=== PATIENT | female | born 1960 | race Caucasian/White ===

== ENCOUNTER → 2016-12-22 | Outpatient (CLI) | payer BC | LOC: WI 12:47 | PROVIDERS: ATTEND Physician Assistant | DX: Z12.31 Encounter for screening mammogram for malignant neoplasm of breast (principal) | CPT/HCPCS: 77067; G0202 ==

== ENCOUNTER 2017-06-05 17:48 | Emergency (ER) | payer BC ==
[2017-06-05] MEDS ORDERED: KETOROLAC TROMETHAMINE INJ/PF 30 MG/1 ML SDV IV ONE (18:04)
[2017-06-05] MEDS ORDERED: ONDANSETRON HCL INJ/PF 4 MG/2 ML SDV IV ONE (18:04)
[2017-06-05] MEDS ORDERED: NORMAL SALINE 1000 ML 1,000 ML IV ONE ×2 (18:04→22:12)
--- NOTE | 2017-06-05 18:12 | ER Document Report ---
ED Medical Screen (RME) - General Chief Complaint: Flank Pain Stated Complaint: BACK PAIN Time Seen by Provider: 06/05/17 18:00 Mode of Arrival: Wheelchair Information source: Patient TRAVEL OUTSIDE OF THE [place] IN LAST 30 DAYS: No - HPI Patient complains to provider of: flank pain Onset: Other - pt was recently diagnosed with kidney infection and started on abx. Started with L flank pain yesterday with exacerbation today. - Related Data Allergies/Adverse Reactions: sulfamethoxazole [From ] Allergy (Verified 06/05/17 17:52) trimethoprim [From Mayra] Allergy (Verified 06/05/17 17:52) narcotics Adverse Reaction (Uncoded 06/05/17 17:52) VOMITING Past Medical History - Past Medical History Cardiac Medical History: Denies: Hx Heart Attack, Hx Hypertension Pulmonary Medical History: Denies: Hx Asthma Neurological Medical History: Denies: Hx Cerebrovascular Accident, Hx Seizures Endocrine Medical History: Reports: Hx Hypothyroidism Renal/ Medical History: Denies: Hx Peritoneal Dialysis GI Medical History: Denies: Hx Hepatitis, Hx Hiatal Hernia, Hx Ulcer Infectious Medical History: Denies: Hx Hepatitis Past Surgical History: Reports: Hx Cholecystectomy, Hx Gynecologic Surgery - Tubal ligation, Hx Hysterectomy. Denies: Hx Mastectomy, Hx Open Heart Surgery, Hx Pacemaker - Immunizations Hx Diphtheria, Pertussis, Tetanus Vaccination: No Physical Exam - Vital signs Vitals: Temp Pulse Resp BP Pulse Ox 98.4 F 119 H 20 145/91 H 97 06/05/17 17:52 06/05/17 17:52 06/05/17 17:52 06/05/17 17:52 06/05/17 17:52 Course - Vital Signs Vital signs: Temp Pulse Resp BP Pulse Ox 98.4 F 119 H 20 145/91 H 97 06/05/17 17:52 06/05/17 17:52 06/05/17 17:52 06/05/17 17:52 06/05/17 17:52
[2017-06-05 18:57] LABS: ABSOLUTE EOSINOPHILS # (AUTO) 0.2 10^3/uL (0.0-0.6); ABSOLUTE LYMPHOCYTES (AUTO) 1.3 10^3/uL (0.5-4.7); ABSOLUTE NEUT (AUTO) 7.1 10^3/uL (1.7-8.2); BASOPHILS % (AUTO) 0.5 % (0-2); EOSINOPHILS % (AUTO) 2.1 % (0-6); HEMATOCRIT 47.5 % (36.0-47.0); HEMOGLOBIN 15.9 g/dL (12.0-15.5); HGB HCT DIFFERENCE 0.2; LYMPHOCYTES % (AUTO) 13.7 % (13-45); MEAN CORPUSCULAR HEMOGLOBIN 30.7 pg (27.0-33.4); MEAN CORPUSCULAR HGB CONC 33.4 g/dL (32.0-36.0); MEAN CORPUSCULAR VOLUME 92 fl (80-97); MONOCYTES % (AUTO) 10.2 % (3-13); RED BLOOD COUNT 5.17 10^6/uL (3.72-5.28); RED CELL DISTRIBUTION WIDTH 13.3 % (11.5-14.0); SEGMENTED NEUTROPHILS % (AUTO) 73.5 % (42-78); WHITE BLOOD COUNT 9.7 10^3/uL (4.0-10.5)
--- NOTE | 2017-06-05 19:04 | RADIOLOGY REPORT (SQ) ---
EXAM DESCRIPTION: CT LTD RENAL STONE PROTOCOL ON COMPLETED DATE/TIME: 06/05/2017 6:42 pm REASON FOR STUDY: flank pain COMPARISON: None. TECHNIQUE: CT scan of the abdomen and pelvis performed without intravenous or oral contrast. Images reviewed with lung, soft tissue, and bone windows. Reconstructed coronal and sagittal MPR images revi ewed. All images stored on PACS. All CT scanners at this facility use dose modulation, iterative reconstruction, and/or weight based d osing when appropriate to reduce radiation dose to as low as reasonably achievable (ALARA). [facility]: Dose Right [facility]: CareDose [facility]: Dose Right [facility]: Teradose 4D [facility]: Smart Technologies RADIATION DOSE: Up-to-date CT equipment and radiation dose reduction techniques were employed. CTDIv ol: 14.3 mGy. DLP: 752 mGy-cm.mGy. LIMITATIONS: None. FINDINGS: LOWER CHEST: No significant findings. No nodules or infiltrates. NON-CONTRASTED LIVER, SPLEEN, ADRENALS: Evaluation limited by lack of IV contrast. No identified sign ificant masses. PANCREAS: No masses. No peripancreatic inflammatory changes. GALLBLADDER: Surgically absent. RIGHT KIDNEY AND URETER: No suspicious masses. Assessment limited by lack of IV contrast. No signif icant calcifications. No hydronephrosis or hydroureter. LEFT KIDNEY AND URETER: No suspicious masses. Assessment limited by lack of IV contrast. No signifi cant calcifications. No hydronephrosis or hydroureter. AORTA AND RETROPERITONEUM: No aneurysm. No retroperitoneal masses or adenopathy. BOWEL AND PERITONEAL CAVITY: No obvious masses or inflammatory changes. No free fluid. APPENDIX: Not identified. PELVIS, BLADDER, AND ABDOMINAL WALL:The urinary bladder is normal. The uterus is absent. There is n o adnexal mass or fluid collection. BONES: Degenerative disc disease at L5-S1. No osseous lesions are seen. OTHER: No other significant finding. IMPRESSION: 1. No urinary pathology. 2. Degenerative disc disease at L5-S1. COMMENT: Quality ID # [id number]: Final reports with documentation of one or more dose reduction techniques (e.g., Automated exposure control, adjustment of the mA and/or kV according to patient size, use of iterative reconstruction technique) TECHNICAL DOCUMENTATION: JOB ID: [id number]- All Rights Reserved
[2017-06-05 19:05] LABS: APPEARANCE,URINE CLEAR; BILIRUBIN,URINE NEGATIVE (NEGATIVE); GLUCOSE, URINE NEGATIVE (NEGATIVE); KETONES,URINE NEGATIVE (NEGATIVE); LEUKOCYTE ESTERASE,URINE SMALL (NEGATIVE); NITRITE,URINE POSITIVE (NEGATIVE); PROTEIN,URINE 30 mg/dL (NEGATIVE); URINE SPECIFIC GRAVITY 1.004
[2017-06-05 19:12] LABS: ALANINE AMINOTRANSFERASE 36 U/L (9-52); ALBUMIN 4.4 g/dL (3.5-5.0); ALKALINE PHOSPHATASE 122 U/L (38-126); ANION GAP 14 (5-19); ASPARTATE AMINO TRANSFERASE 52 U/L (14-36); BILIRUBIN,TOTAL 0.8 mg/dL (0.2-1.3); BLOOD UREA NITROGEN 12 mg/dL (7-20); CALCIUM 9.7 mg/dL (8.4-10.2); CARBON DIOXIDE 29 mmol/L (22-30); CHLORIDE 100 mmol/L (98-107); CREATININE RESULT 0.97 mg/dL (0.52-1.25); GLUCOSE 117 mg/dL (75-110); POTASSIUM 4.2 mmol/L (3.6-5.0); SODIUM 142.7 mmol/L (137-145)
[2017-06-05] MEDS ORDERED: TRAMADOL HCL 50 MG TABLET PO ONE (19:55)
[2017-06-05] MEDS ORDERED: PROMETHAZINE HCL 25 MG TABLET PO ONE (19:55)
[2017-06-05] MEDS ORDERED: FLUCONAZOLE 100 MG TABLET PO ONE (19:55)
--- NOTE | 2017-06-05 20:00 | ER Document Report ---
ED GI/ - General Chief Complaint: Flank Pain Stated Complaint: BACK PAIN Time Seen by Provider: 06/05/17 18:00 Mode of Arrival: Wheelchair Notes: Patient is a 56-year-old female comes emergency department for chief complaint of flank pain, worse on the right side but also present on the left, she reports urinary tract infection since Thursday of this week, this is approximately 5th day of symptoms. She states she was on Macrobid and Cipro before this, she states that she also has a yeast infection going on. She denies fever, vomiting. She denies history of kidney stones. PMH hypothyroidism. TRAVEL OUTSIDE OF THE [place] IN LAST 30 DAYS: No - Related Data Allergies/Adverse Reactions: sulfamethoxazole [From ] Allergy (Verified 06/05/17 17:52) trimethoprim [From Mayra] Allergy (Verified 06/05/17 17:52) narcotics Adverse Reaction (Uncoded 06/05/17 17:52) VOMITING Home Medications: Current Home Medications Cholecalciferol (Vitamin D3) [Vitamin D3] 1,000 unit PO DAILY 06/05/17 [History] Past Medical History - General Information source: Patient - Social History Smoking Status: Never Smoker Frequency of alcohol use: None Drug Abuse: None Lives with: Family Family History: Reviewed & Not Pertinent - Past Medical History Cardiac Medical History: Denies: Hx Heart Attack, Hx Hypertension Pulmonary Medical History: Denies: Hx Asthma Neurological Medical History: Denies: Hx Cerebrovascular Accident, Hx Seizures Endocrine Medical History: Reports: Hx Hypothyroidism Renal/ Medical History: Denies: Hx Peritoneal Dialysis GI Medical History: Denies: Hx Hepatitis, Hx Hiatal Hernia, Hx Ulcer Infectious Medical History: Denies: Hx Hepatitis Past Surgical History: Reports: Hx Cholecystectomy, Hx Gynecologic Surgery - Tubal ligation, Hx Hysterectomy. Denies: Hx Mastectomy, Hx Open Heart Surgery, Hx Pacemaker - Immunizations Hx Diphtheria, Pertussis, Tetanus Vaccination: No Review of Systems - Review of Systems Constitutional: No symptoms reported EENT: No symptoms reported Cardiovascular: No symptoms reported Respiratory: No symptoms reported Gastrointestinal: No symptoms reported Genitourinary: See HPI Female Genitourinary: No symptoms reported Musculoskeletal: See HPI Skin: No symptoms reported Hematologic/Lymphatic: No symptoms reported Neurological/Psychological: No symptoms reported Physical Exam - Vital signs Vitals: Temp Pulse Resp BP Pulse Ox 98.4 F 119 H 20 145/91 H 97 06/05/17 17:52 06/05/17 17:52 06/05/17 17:52 06/05/17 17:52 06/05/17 17:52 Interpretation: Normal - General General appearance: Appears well, Alert, Anxious In distress: Mild - Patient shifting uncomfortably in the bed - HEENT Head: Normocephalic, Atraumatic Eyes: Normal Conjunctiva: Normal Extraocular movements intact: Yes Eyelashes: Normal Pupils: PERRL Mouth/Lips: Normal Mucous membranes: Normal Pharynx: Normal Neck: Normal - Respiratory Respiratory status: No respiratory distress Chest status: Nontender Breath sounds: Normal. No: Decreased air movement, Wheezing Chest palpation: Normal - Cardiovascular Rhythm: Regular, Tachycardia Heart sounds: Normal auscultation, S1 appreciated, S2 appreciated Murmur: No - Abdominal Inspection: Normal Distension: No distension Bowel sounds: Normal Tenderness: Nontender. No: Tender, Guarding Organomegaly: No organomegaly - Back Back: Normal, Nontender, CVA tenderness - Minimal CVA tenderness, slightly more so on the right side - Extremities General upper extremity: Normal inspection, Nontender, Normal color, Normal ROM , Normal temperature General lower extremity: Normal inspection, Nontender, Normal color, Normal ROM , Normal temperature, Normal weight bearing. No: Chante's sign - Neurological Neuro grossly intact: Yes Cognition: Normal Orientation: AAOx4 Shital Coma Scale Eye Opening: Spontaneous Sh[place] Coma Scale Verbal: Oriented [place] Coma Scale Motor: Obeys Commands [place] Coma Scale Total: 15 Speech: Normal Motor strength normal: LUE, RUE, LLE, RLE Sensory: Normal - Psychological Associated symptoms: Normal affect, Normal mood - Skin Skin Temperature: Warm Skin Moisture: Dry Skin Color: Normal Course - Re-evaluation Re-evalutation: Patient appears uncomfortable, she has CVA tenderness which is very mild bilaterally and slightly worse on the right side. Soft abdomen. She is tachycardic. Patient given IV fluids, tramadol, Phenergan. She states this is the only pain medication she can take and that is when she was given this. Patient also reporting symptoms of a yeast infection, given Diflucan. CBC unremarkable except for elevated hemoglobin which is nonspecific. Chemistry unremarkable. Urinalysis showing obvious infection with positive nitrates and elevated white blood cell count. Urine culture placed. Patient given Rocephin, reevaluated at bedside. She is asking to leave. She states she wants to be treated at home. I did discuss the fact that she had a fever, kidney infection, and tachycardia. I did agree to give patient additional IV fluids and reevaluate, agreed to give her her first oral dose of Levaquin. Patient states that she would like to try going home. Reevaluated. Patient sleeping peacefully. Blood pressure is slightly low, however this was rechecked and improves when she is more awake. Tachycardia has resolved after second bolus of IV fluids. Patient is very well-appearing, ambulating around without any difficulty. She is not a diabetic. She again requests to leave. I discussed strict return precautions with patient, she states she will return immediately if she worsens in any way including spiking fever, vomiting, increased pain, or any other concerning symptoms. states agreement with this plan as well. - Vital Signs Vital signs: Temp Pulse Resp BP Pulse Ox 98.7 F 110 H 14 102/75 96 06/06/17 01:30 06/05/17 22:02 06/06/17 01:30 06/06/17 01:30 06/06/17 01:30 - Laboratory Result Diagrams: 06/05/17 18:03 06/05/17 18:03 Laboratory results interpreted by me: 06/05/17 06/05/17 06/05/17 18:03 18:03 18:21 Hgb 15.9 H Hct 47.5 H Glucose 117 H AST 52 H Urine Protein 30 H Urine Blood SMALL H Urine Nitrite POSITIVE H Urine Urobilinogen 4.0 H Ur Leukocyte Esterase SMALL H Discharge - Discharge Clinical Impression: Flank pain Urinary tract infection Qualifiers: Urinary tract infection type: site unspecified Hematuria presence: without hematuria Qualified Code(s): N39.0 - Urinary tract infection, site not specified Condition: Stable Disposition: HOME, SELF-CARE Additional Instructions: Your workup and examination is consistent with a developing urinary tract infection. Please take the Levaquin as prescribed. Take the tramadol for pain, take Phenergan if needed for nausea. Follow-up with primary care in the next few days. Return to emergency department immediately if you worsen in any way including spiking fever, vomiting, increased pain, or any other concerning symptoms. Prescriptions: Levofloxacin [Levaquin 750 mg Tablet] 750 mg PO DAILY #5 tablet Promethazine HCl [Phenergan 25 mg Tablet] 1 - 2 tab PO Q6H PRN #20 tablet PRN Reason: Tramadol HCl 50 mg PO ASDIR PRN #20 tablet PRN Reason: Forms: Return to Work
[2017-06-05] MEDS ORDERED: CEFTRIAXONE 1 GM/D5W RTU 1 GM/50 ML RTUPB IV ONE (20:53)
[2017-06-05] MEDS ORDERED: ACETAMINOPHEN 325 MG TABLET PO ONE (20:54)
[2017-06-05] MEDS ORDERED: ACETAMINOPHEN 325 MG TABLET ONE (20:59)
[2017-06-05] MEDS ORDERED: LEVOFLOXACIN 750 MG TABLET PO ONE (21:35)
[2017-06-06 01:54] VITALS: BP 102/75
== END 2017-06-06 01:55 | disposition home or self-care (01) ==
LOC: ER 17:48
DX: N15.9 Renal tubulo-interstitial disease, unspecified (principal); R10.9 Unspecified abdominal pain; R00.0 Tachycardia, unspecified; R50.9 Fever, unspecified; Z88.1 Allergy status to other antibiotic agents; Z90.49 Acquired absence of other specified parts of digestive tract; Z98.51 Tubal ligation status
CPT/HCPCS: 99284; 96361; 96365; 36415; 87040; 87086; 85025; 80053; 81001; 76380; J7030; J0696

== ENCOUNTER 2018-06-09 18:47 | Emergency (ER) | payer BC ==
--- NOTE | 2018-06-09 19:18 | ER Document Report ---
ED Medical Screen (RME) - General Chief Complaint: Back Pain Stated Complaint: FLANK PAIN Time Seen by Provider: 06/09/18 19:03 Mode of Arrival: Ambulatory Information source: Patient Notes: Patient complaining of sudden onset of bilateral flank pain and dysuria. She said the last time she had this she was diagnosed with kidney infection. Patient refusing pain medicine at this time. I have greeted and performed a rapid initial assessment of this patient. A comprehensive ED assessment and evaluation of the patient, analysis of test results and completion of the medical decision making process will be conducted by additional ED providers. TRAVEL OUTSIDE OF THE [place] IN LAST 30 DAYS: No - Related Data Allergies/Adverse Reactions: sulfamethoxazole [From Mayra] Allergy (Verified 06/09/18 19:08) trimethoprim [From Mayra] Allergy (Verified 06/09/18 19:08) narcotics Adverse Reaction (Uncoded 06/09/18 19:08) VOMITING Past Medical History - Social History Frequency of alcohol use: None Drug Abuse: None - Past Medical History Cardiac Medical History: Denies: Hx Heart Attack, Hx Hypertension Pulmonary Medical History: Denies: Hx Asthma Neurological Medical History: Denies: Hx Cerebrovascular Accident, Hx Seizures Endocrine Medical History: Reports: Hx Hypothyroidism Renal/ Medical History: Denies: Hx Peritoneal Dialysis GI Medical History: Denies: Hx Hepatitis, Hx Hiatal Hernia, Hx Ulcer Infectious Medical History: Denies: Hx Hepatitis Past Surgical History: Reports: Hx Cholecystectomy, Hx Gynecologic Surgery - Tubal ligation, Hx Hysterectomy. Denies: Hx Mastectomy, Hx Open Heart Surgery, Hx Pacemaker - Immunizations Hx Diphtheria, Pertussis, Tetanus Vaccination: No Physical Exam - Vital signs Vitals: Temp Pulse Resp BP Pulse Ox 97.6 F 94 16 145/79 H 97 06/09/18 18:53 06/09/18 18:53 06/09/18 18:53 06/09/18 18:53 06/09/18 18:53 Course - Vital Signs Vital signs: Temp Pulse Resp BP Pulse Ox 97.6 F 94 16 145/79 H 97 06/09/18 18:53 06/09/18 18:53 06/09/18 18:53 06/09/18 18:53 06/09/18 18:53
[2018-06-09 19:33] LABS: APPEARANCE,URINE CLEAR; BILIRUBIN,URINE NEGATIVE (NEGATIVE); COLOR,URINE COLORLESS; GLUCOSE, URINE NEGATIVE (NEGATIVE); KETONES,URINE NEGATIVE (NEGATIVE); LEUKOCYTE ESTERASE,URINE NEGATIVE (NEGATIVE); NITRITE,URINE NEGATIVE (NEGATIVE); PROTEIN,URINE NEGATIVE (NEGATIVE); URINE SPECIFIC GRAVITY 1.002; UROBILINOGEN,URINE NEGATIVE mg/dL (<2.0)
[2018-06-09 20:24] LABS: ABSOLUTE BASOPHILS # (AUTO) 0.1 10^3/uL (0.0-0.2); ABSOLUTE EOSINOPHILS # (AUTO) 0.2 10^3/uL (0.0-0.6); ABSOLUTE LYMPHOCYTES (AUTO) 1.7 10^3/uL (0.5-4.7); ABSOLUTE MONOCYTES (AUTO) 0.7 10^3/uL (0.1-1.4); ABSOLUTE NEUT (AUTO) 6.5 10^3/uL (1.7-8.2); BASOPHILS % (AUTO) 0.9 % (0-2); EOSINOPHILS % (AUTO) 1.9 % (0-6); HEMATOCRIT 46.2 % (36.0-47.0); HEMOGLOBIN 15.6 g/dL (12.0-15.5); MEAN CORPUSCULAR HEMOGLOBIN 30.7 pg (27.0-33.4); MEAN CORPUSCULAR HGB CONC 33.8 g/dL (32.0-36.0); MEAN CORPUSCULAR VOLUME 91 fl (80-97); PLATELET COUNT 243 10^3/uL (150-450); RED CELL DISTRIBUTION WIDTH 13.3 % (11.5-14.0); SEGMENTED NEUTROPHILS % (AUTO) 70.2 % (42-78); TOTAL CELLS COUNTED % (AUTO) 100 %; WHITE BLOOD COUNT 9.2 10^3/uL (4.0-10.5)
[2018-06-09 20:40] LABS: ALANINE AMINOTRANSFERASE 22 U/L (9-52); ALBUMIN 4.3 g/dL (3.5-5.0); ALKALINE PHOSPHATASE 59 U/L (38-126); ANION GAP 9 (5-19); ASPARTATE AMINO TRANSFERASE 27 U/L (14-36); BILIRUBIN,DIRECT 0.4 mg/dL (0.0-0.4); BILIRUBIN,TOTAL 0.7 mg/dL (0.2-1.3); BLOOD UREA NITROGEN 12 mg/dL (7-20); CALCIUM 9.8 mg/dL (8.4-10.2); CARBON DIOXIDE 27 mmol/L (22-30); CHLORIDE 104 mmol/L (98-107); GLUCOSE 88 mg/dL (75-110); POTASSIUM 4.5 mmol/L (3.6-5.0); SODIUM 140.2 mmol/L (137-145); TOTAL PROTEIN 7.8 g/dL (6.3-8.2)
[2018-06-09] MEDS ORDERED: LIDOCAINE 5% (700 MG) TRANSDERMAL ADH..PATCH TP ONE (20:51)
[2018-06-09] MEDS ORDERED: ACETAMINOPHEN 325 MG TABLET PO ONE (20:51)
--- NOTE | 2018-06-09 21:05 | ER Document Report ---
ED General - General Chief Complaint: Back Pain Stated Complaint: FLANK PAIN Time Seen by Provider: 06/09/18 19:03 Mode of Arrival: Ambulatory Notes: Patient is a 57-year-old female without chronic medical problems who presents with bilateral flank pain that is been ongoing for the past 24 hours. The patient states that she has had a history of similar issues in the past most recently in May 2017 which at that time was attributed to a kidney infection although her urine culture was negative. Patient describes as a stabbing, aching pain to her bilateral flank. Nothing improves or worsens her symptoms. She denies associated nausea, vomiting, diarrhea, chest pain or shortness of breath. No fever or constitutional symptoms. She has not seen her general doctor regarding today's concerns. TRAVEL OUTSIDE OF THE [place] IN LAST 30 DAYS: No - Related Data Allergies/Adverse Reactions: sulfamethoxazole [From Mayra] Allergy (Verified 06/09/18 19:08) trimethoprim [From Mayra] Allergy (Verified 06/09/18 19:08) narcotics Adverse Reaction (Uncoded 06/09/18 19:08) VOMITING Past Medical History - General Information source: Patient - Social History Smoking Status: Former Smoker Frequency of alcohol use: None Drug Abuse: None Lives with: Spouse/Significant other Family History: Reviewed & Not Pertinent Patient has suicidal ideation: No Patient has homicidal ideation: No - Past Medical History Cardiac Medical History: Denies: Hx Heart Attack, Hx Hypertension Pulmonary Medical History: Denies: Hx Asthma Neurological Medical History: Denies: Hx Cerebrovascular Accident, Hx Seizures Endocrine Medical History: Reports: Hx Hypothyroidism Renal/ Medical History: Denies: Hx Peritoneal Dialysis GI Medical History: Denies: Hx Hepatitis, Hx Hiatal Hernia, Hx Ulcer Infectious Medical History: Denies: Hx Hepatitis Past Surgical History: Reports: Hx Cholecystectomy, Hx Gynecologic Surgery - Tubal ligation, Hx Hysterectomy. Denies: Hx Mastectomy, Hx Open Heart Surgery, Hx Pacemaker - Immunizations Hx Diphtheria, Pertussis, Tetanus Vaccination: No Review of Systems - Review of Systems Notes: Constitutional: Negative for fever. HENT: Negative for sore throat. Eyes: Negative for visual changes. Cardiovascular: Negative for chest pain. Respiratory: Negative for shortness of breath. Gastrointestinal: Positive for bilateral flank pain Genitourinary: Negative for dysuria. Musculoskeletal: Negative for back pain. Skin: Negative for rash. Neurological: Negative for headaches, weakness or numbness. 10 point ROS negative except as marked above and in HPI. Physical Exam - Vital signs Vitals: Temp Pulse Resp BP Pulse Ox 97.6 F 94 16 145/79 H 97 06/09/18 18:53 18 18:53 18 18:53 06/09/18 18:53 06/09/18 18:53 Interpretation: Hypertensive Notes: PHYSICAL EXAMINATION: GENERAL: Well-appearing, well-nourished and in no acute distress. HEAD: Atraumatic, normocephalic. EYES: Pupils equal round and reactive to light, extraocular movements intact, sclera anicteric, conjunctiva are normal. ENT: nares patent, oropharynx clear without exudates. Moist mucous membranes. NECK: Normal range of motion, supple without lymphadenopathy LUNGS: Breath sounds clear to auscultation bilaterally and equal. No wheezes rales or rhonchi. HEART: Regular rate and rhythm without murmurs ABDOMEN: Soft, nontender, normoactive bowel sounds. No guarding, no rebound. No masses appreciated. Bilateral CVA tenderness to palpation Back: No midline spinal tenderness, step-offs or deformities. EXTREMITIES: Normal range of motion, no pitting or edema. No cyanosis. NEUROLOGICAL: No focal neurological deficits. Moves all extremities spontaneously and on command. PSYCH: Normal mood, normal affect. SKIN: Warm, Dry, normal turgor, no rashes or lesions noted. Course - Re-evaluation Re-evalutation: 06/09/18 22:01 Patient presents with bilateral flank pain of uncertain etiology. Her urinalysis is not consistent with pyelonephritis and the last time she was treated it was on the presumptive diagnosis of pyelonephritis which turned out to be inaccurate as the patient did not have any growth in her urine. Her symptoms did however improve that time spontaneously. Her symptoms are likewise not consistent with nephrolithiasis as they are bilateral and there is no evidence of hematuria. The patient also does not clinically present in this fashion. A renal ultrasound has been undertaken to evaluate for possible obstruction that could be causing bilateral hydronephrosis. I anticipate that this will likely be unremarkable. I have explained the patient that there is a large degree of diagnostic uncertainty regarding her presentation today but it does not appear to be from any immediate life-threatening cause. I have emphasized her that once the weather clears she will likely need to follow-up with urology and her primary care doctor for further clarification of why she continues to have these symptoms intermittently which she notes that she has had repeatedly over the past several years. 06/09/18 22:33 Renal ultrasound normal. At this time will discharge with return precautions and follow-up recommendations. Verbal discharge instructions given a the bedside and opportunity for questions given. Medication warnings reviewed. Patient is in agreement with this plan and has verbalized understanding of return precautions and the need for primary care follow-up in the next 24-72 hours. - Vital Signs Vital signs: Temp Pulse Resp BP Pulse Ox 97.6 F 94 16 145/79 H 97 06/09/18 18:53 06/09/18 18:53 06/09/18 18:53 06/09/18 18:53 06/09/18 18:53 - Laboratory Result Diagrams: 06/09/18 20:14 06/09/18 20:14 Laboratory results interpreted by me: 06/09/18 20:14 Hgb 15.6 H - Diagnostic Test Radiology reviewed: Reports reviewed Discharge - Discharge Clinical Impression: Bilateral flank pain Condition: Good Disposition: HOME, SELF-CARE Additional Instructions: The exact cause of your flank pain is uncertain but does not appear to be from any life-threatening cause at this time. Your ultrasound and labs are normal. Once the weather has cleared, I would like you to follow-up closely with her primary care doctor as well as the urologist. Return to emergency department immediately to develop fever of greater than 101F, persistent vomiting, pass out, have worsening of your pain, become unable to tolerate fluids, or have any other symptoms that are worrisome to you. For your pain: Take ibuprofen 600 mg and acetaminophen 1000 mg every 6 hours together as needed for pain.
--- NOTE | 2018-06-09 22:18 | RADIOLOGY REPORT (SQ) ---
US RETROPERITONEUM HISTORY: Bilateral flank pain. COMPARISON: None. FINDINGS: The right kidney measures 9.4 cm in length, which is normal size. The cortex has normal thickness and echogenicity. There is no right-sided kidney stone, mass or hydronephrosis. The left kidney measures 11.3 cm in length, which is normal size. The cortex has normal thickness and echogenicity. There is no left-sided kidney stone, mass or hydronephrosis. There is normal color Doppler flow to both kidneys. Bilateral ureteral jets are seen in the bladder. IMPRESSION: Unremarkable kidneys.
[2018-06-09 22:52] VITALS: BP 117/76
== END 2018-06-09 22:51 | disposition home or self-care (01) ==
LOC: ER 18:47
DX: R10.9 Unspecified abdominal pain (principal)
CPT/HCPCS: 36415; 76770; 80053; 81001; 85025; 99284

== ENCOUNTER → 2018-09-27 | Outpatient (CLI) | payer BC ==
--- NOTE | 2018-09-27 11:06 | WOMENS IMAGING REPORT ---
EXAM DESCRIPTION: BILAT SCREENING MAMMO W/CAD COMPLETED DATE/TIME: 09/27/2018 10:41 am REASON FOR STUDY: SCREENING MAMMO Z12.31 ENCNTR SCREEN MAMMOGRAM FOR MALIGNANT NEOPLASM OF SARI COMPARISON: 12/22/2016 and 08/31/2009. TECHNIQUE: Standard craniocaudal and mediolateral oblique views of each breast recorded using digita l acquisition. LIMITATIONS: None. FINDINGS: No masses, calcifications or architectural distortion. No areas of suspicion. Read with the assistance of CAD. .[facility] - R2 Cenova Version 1.3 .[facility] - R2 Cenova Version 1.3 .[facility] - R2 Cenova Version 2.4 .[facility] [place] Cenova Version 2.4 .[facility] - R2 [facility] Aide Version 9.2 IMPRESSION: NORMAL MAMMOGRAM. BIRADS 1. BREAST DENSITY: c. The breasts are heterogeneously dense, which may obscure small masses. BIRAD: 1 NEGATIVE RECOMMENDATION: ROUTINE SCREENING COMMENT: The patient has been notified of the results by letter per [place] requirements. Additional no tification policies are in place for contacting patient with suspicious or incomplete findings. Quality ID #[id number]: The [employer] recommends an annual screening mammogram for women aged 40 years or over. This facility utilizes a reminder system to ensure that all patients receive reminder letters, and/or direct phone calls for appointments. This includes reminders for routine scr eening mammograms, diagnostic mammograms, or other Breast Imaging Interventions when appropriate. Th is patient will be placed in the appropriate reminder system. The [employer] (A[employer]) has developed recommendations for screening MRI of the breast s in certain patient populations, to be used in conjunction with mammography. Breast MRI surveillanc e may be appropriate for women with more than 20% lifetime risk of developing breast cancer as deter mined by genetic testing, significant family history of the disease, or history of mantle radiation f or Hodgkins Disease. ACR Practice Guidelines 2008. TECHNICAL DOCUMENTATION: FINDING NUMBER: (1) ASSESSMENT: (1) JOB ID: [id number] [employer]- All Rights Reserved Reading location - IP/workstation name: [email or web address]
== END ==
LOC: WI 10:19
PROVIDERS: ATTEND Nurse Practitioner Family
DX: Z12.31 Encounter for screening mammogram for malignant neoplasm of breast (principal)
CPT/HCPCS: 77067

== ENCOUNTER 2019-12-26 20:07 | Emergency (ER) | payer BC ==
[2019-12-26] MEDS ORDERED: IPRATROPIUM/ALBUTEROL 0.5-2.5 MG/3 ML AMPUL NEB ONE (20:26)
[2019-12-26] MEDS ORDERED: DEXAMETHASONE SOD PHOSPHATE INJ 4 MG/1 ML VIAL IM ONE (20:26)
--- NOTE | 2019-12-26 20:32 | ER Document Report ---
ED General - General Chief Complaint: Cough Stated Complaint: COUGH/SHORTNESS OF BREATH Time Seen by Provider: 12/26/19 20:13 Primary Care Provider: KALI PERALTA FNP-C [Primary Care Provider] - Follow up in 1 week Mode of Arrival: Ambulatory Information source: Patient Notes: 59-year-old female with history of bronchitis presents to the emergency department with complaints of shortness of breath, cough and chest tightness that started tonight. Denies fever nausea vomiting diarrhea. No known covid exposure. No recent trips. Patient does work for nursing home social worker. Reports she has a history of bronchitis and this feels the same. She reports she used an inhaler and a neb treatment prior to arrival without relief of symptoms. She reports the chest tightness is in the center of her chest does not radiate. She did take some antacid without relief of the chest tightness. Denies history of cardiac disease. She does admit she has felt a little short of breath for the past couple days. She has been using her inhaler without relief of symptoms. TRAVEL OUTSIDE OF THE [place] IN LAST 30 DAYS: No - HPI Onset: This evening Onset/Duration: Intermittent Quality of pain: Other - tightness Associated symptoms: Chest pain Exacerbated by: Denies Relieved by: Denies Similar symptoms previously: No Recently seen / treated by doctor: No - Related Data Allergies/Adverse Reactions: sulfamethoxazole [From Septra] Allergy (Verified 12/26/19 20:35) trimethoprim [From Septra] Allergy (Verified 12/26/19 20:35) narcotics Adverse Reaction (Uncoded 12/26/19 20:35) VOMITING Past Medical History - General Information source: Patient - Social History Smoking Status: Former Smoker - quit 11 years ago Cigarette use (# per day): No Frequency of alcohol use: None Drug Abuse: None Occupation: [employer] Family History: Reviewed & Not Pertinent Patient has suicidal ideation: No Patient has homicidal ideation: No - Past Medical History Cardiac Medical History: Denies: Hx Heart Attack, Hx Hypertension Pulmonary Medical History: Reports: Hx Bronchitis Denies: Hx Asthma Neurological Medical History: Denies: Hx Cerebrovascular Accident, Hx Seizures Endocrine Medical History: Reports: Hx Hypothyroidism Renal/ Medical History: Denies: Hx Peritoneal Dialysis GI Medical History: Denies: Hx Hepatitis, Hx Hiatal Hernia, Hx Ulcer Infectious Medical History: Denies: Hx Hepatitis Past Surgical History: Reports: Hx Cholecystectomy, Hx Gynecologic Surgery - Tubal ligation, Hx Hysterectomy. Denies: Hx Mastectomy, Hx Open Heart Surgery, Hx Pacemaker - Immunizations Hx Diphtheria, Pertussis, Tetanus Vaccination: No Review of Systems - Review of Systems Notes: Review HPI for review of systems., All other systems negative Physical Exam - Vital signs Vitals: Temp Pulse Resp BP Pulse Ox 97.8 F 75 20 147/73 H 100 12/26/19 20:33 12/26/19 20:33 12/26/19 20:33 12/26/19 20:33 12/26/19 20:33 - Notes Notes: PHYSICAL EXAMINATION: GENERAL: Well-appearing and in no acute distress HEAD: Atraumatic, normocephalic. EYES: Pupils equal round and reactive to light, extraocular movements intact, sclera anicteric, conjunctiva are normal. ENT: nares patent, oropharynx clear without exudates. Moist mucous membranes. NECK: Normal range of motion, supple without lymphadenopathy LUNGS: tight, respiratory rate even unlabored, frequent coughing HEART: Regular rate and rhythm without murmurs ABDOMEN: Soft, no tenderness. No guarding, no rebound EXTREMITIES: Normal range of motion, NEUROLOGICAL: Cranial nerves grossly intact PSYCH: Normal mood, normal affect. SKIN: Warm, Dry, normal turgor, no visual rashes or lesions noted Course - Re-evaluation Re-evalutation: 12/26/19 21:49 59-year-old female with history of bronchitis presents emergency department with cough some shortness of breath chest tightness. Reports she used her nebulizer and inhaler that she had from the past bouts of bronchitis and is not relieving the symptoms. Also took some [id number] antacids with relief of chest tightness. Reports she used to smoke 11 years ago. Denies history of cardiac disease. Patient reports she is feeling much better cough has decreased since receiving neb treatment and steroids. Patient was prescribed Robitussin and steroid dispense pack. She was instructed on decadron and steroid dispense pack is to be filled in case she starts with the coughing again. No antibiotics at this time. she verbalized understanding to all instructions Presentation of chest tightness with history of bronchitis in an otherwise well- appearing patient. Low clinical suspicion for ACS given the clinical history, exam, EKG without ST elevation or depressions, and negative initial troponin. Heart score less than or equal to 3. PE also seems unlikely given the clinical history, absence of tachycardia or dyspnea. Patient's PERC criteria is negative. Chest x-ray without evidence of pneumothorax or pneumonia. No widened mediastinum. Inferior dissection also seems unlikely given history, symmetric pulses, chest x-ray and vitals. Given the reassuring evaluation, will plan for discharge home at this time with return precautions and follow-up recom mendations. Patient has been instructed to return if symptoms worsen or change in any way. History= 0 ECG= 0 Age= 1 Risk Factors= 0 Troponin=0 HEART score= 1 Labs unremarkable, troponin neg. Chest pain in a patient without evidence of cardiac etiology during the workup today. I discussed with patient that based on age, risk factors and emergency department testing, the likelihood that her symptoms are related to her heart is very low (estimated risk of heart attack or over the next 30 days of less than 1% ). The patient demonstrates decision-making capacity and has verbalized an understanding of these risks to me. Based on this, the patient was instructed to follow-up up as an outpatient. Usual chest pain return precautions reviewed. Patient verbalized understanding. Laboratory 12/26/19 12/26/19 12/26/19 20:19 20:42 20:42 WBC 6.1 RBC 4.84 Hgb 15.3 Hct 44.1 MCV 91 MCH 31.5 MCHC 34.6 RDW 13.6 Plt Count 213 Lymph % (Auto) 32.4 Kay % (Auto) 9.7 Eos % (Auto) 3.8 Baso % (Auto) 0.6 Absolute Neuts (auto) 3.3 Absolute Lymphs (auto) 2.0 Absolute Monos (auto) 0.6 Absolute Eos (auto) 0.2 Absolute Basos (auto) 0.0 Seg Neutrophils % 53.5 Sodium 137.4 Potassium 3.7 Chloride 102 Carbon Dioxide 29 Anion Gap 6 BUN 13 Creatinine 0.73 Est GFR ( Amer) > 60 Est GFR (MDRD) Non-Af > 60 Glucose 114 H Calcium 9.4 Total Bilirubin 0.3 Direct Bilirubin 0.2 Neonat Total Bilirubin Not Reportable Neonat Direct Bilirubin Not Reportable Neonat Indirect Bili Not Reportable AST 28 ALT 11 Alkaline Phosphatase 59 Troponin I Total Protein 7.5 Albumin 4.0 Urine Color COLORLESS Urine Appearance CLEAR Urine pH 6.0 Ur Specific Jewett 1.002 Urine Protein NEGATIVE Urine Glucose (UA) NEGATIVE Urine Ketones NEGATIVE Urine Blood NEGATIVE Urine Nitrite NEGATIVE Urine Bilirubin NEGATIVE Urine Urobilinogen NEGATIVE Ur Leukocyte Esterase NEGATIVE Urine RBC (Auto) 0 Squamous Epi Cells Auto <1 Urine Ascorbic Acid NEGATIVE 12/26/19 20:42 WBC RBC Hgb Hct MCV MCH MCHC RDW Plt Count Lymph % (Auto) Kay % (Auto) Eos % (Auto) Baso % (Auto) Absolute Neuts (auto) Absolute Lymphs (auto) Absolute Monos (auto) Absolute Eos (auto) Absolute Basos (auto) Seg Neutrophils % Sodium Potassium Chloride Carbon Dioxide Anion Gap BUN Creatinine Est GFR ( Amer) Est GFR (MDRD) Non-Af Glucose Calcium Total Bilirubin Direct Bilirubin Neonat Total Bilirubin Neonat Direct Bilirubin Neonat Indirect Bili AST ALT Alkaline Phosphatase Troponin I < 0.012 Total Protein Albumin Urine Color Urine Appearance Urine pH Ur Specific Jewett Urine Protein Urine Glucose (UA) Urine Ketones Urine Blood Urine Nitrite Urine Bilirubin Urine Urobilinogen Ur Leukocyte Esterase Urine RBC (Auto) Squamous Epi Cells Auto Urine Ascorbic Acid 12/26/19 22:34 Chest X-Ray 12/26/19 20:26 IMPRESSION: No pulmonary infiltrates are noted No evidence of acute process - Vital Signs Vital signs: Temp Pulse Resp BP Pulse Ox 97.8 F 75 20 147/73 H 100 12/26/19 20:33 12/26/19 20:33 12/26/19 20:33 12/26/19 20:33 12/26/19 20:33 - Laboratory Result Diagrams: 12/26/19 20:42 12/26/19 20:42 Laboratory results interpreted by me: 12/26/19 20:42 Glucose 114 H - Diagnostic Test Radiology reviewed: Image reviewed, Reports reviewed - EKG Interpretation by Ca EKG shows normal: Sinus rhythm Additional EKG results interpreted by me: 12/26/19 21:[address] elevation no T wave inversion QTC 432 Discharge - Discharge Clinical Impression: Cough, Bronchitis Condition: Stable Disposition: HOME, SELF-CARE Instructions: Bronchitis ([facility]), Steroid Medication Injection, Steroid Medication Additional Instructions: *You have been evaluated for a cough, bronchitis, chest tightness *You have received an injection of steroids * Your labs are unremarkable, no infection noted *Your chest xray was negative for pneumonia *Continue your neb treatments as prescribed, take medication as prescribed *Increase fluids, wash your hands, senior living in place and follow social distancing *Monitor your temperature, take Tylenol as indicated *Follow up with a primary care provider within one week for recheck *Return to ED for increasing fever, cough, worsening condition, changes, needs Monitor your blood pressure. Your blood pressure was elevated today. This may be because you were anxious, in pain or because you need medication. It is important to follow up with your primary care provider for full evaluation. Prescriptions: Prednisone [Deltasone 10 mg Tablet] 10 mg PO ASDIR PRN #21 tablet PRN Reason: Dextromethorphan HBr [Robitussin] 15 mg PO Q12H #15 capsule Forms: Elevated Blood Pressure, Return to Work Referrals: KALI PERALTA FNP-C [Primary Care Provider] - Follow up in 1 week
[2019-12-26 20:35] VITALS: BP 147/73
[2019-12-26 20:44] LABS: APPEARANCE,URINE CLEAR; BILIRUBIN,URINE NEGATIVE (NEGATIVE); COLOR,URINE COLORLESS; GLUCOSE, URINE NEGATIVE (NEGATIVE); KETONES,URINE NEGATIVE (NEGATIVE); LEUKOCYTE ESTERASE,URINE NEGATIVE (NEGATIVE); NITRITE,URINE NEGATIVE (NEGATIVE); PROTEIN,URINE NEGATIVE (NEGATIVE); URINE SPECIFIC GRAVITY 1.002; UROBILINOGEN,URINE NEGATIVE mg/dL (<2.0)
[2019-12-26 21:07] LABS: ABSOLUTE EOSINOPHILS # (AUTO) 0.2 10^3/uL (0.0-0.6); ABSOLUTE MONOCYTES (AUTO) 0.6 10^3/uL (0.1-1.4); ABSOLUTE NEUT (AUTO) 3.3 10^3/uL (1.7-8.2); BASOPHILS % (AUTO) 0.6 % (0-2); EOSINOPHILS % (AUTO) 3.8 % (0-6); HEMATOCRIT 44.1 % (36.0-47.0); HEMOGLOBIN 15.3 g/dL (12.0-15.5); LYMPHOCYTES % (AUTO) 32.4 % (13-45); MEAN CORPUSCULAR HEMOGLOBIN 31.5 pg (27.0-33.4); MEAN CORPUSCULAR HGB CONC 34.6 g/dL (32.0-36.0); MEAN CORPUSCULAR VOLUME 91 fl (80-97); MONOCYTES % (AUTO) 9.7 % (3-13); PLATELET COUNT 213 10^3/uL (150-450); RED BLOOD COUNT 4.84 10^6/uL (3.72-5.28); RED CELL DISTRIBUTION WIDTH 13.6 % (11.5-14.0); SEGMENTED NEUTROPHILS % (AUTO) 53.5 % (42-78); TOTAL CELLS COUNTED % (AUTO) 100 %; WHITE BLOOD COUNT 6.1 10^3/uL (4.0-10.5)
[2019-12-26 21:12] LABS: ALKALINE PHOSPHATASE 59 U/L (38-126); ANION GAP 6 (5-19); ASPARTATE AMINO TRANSFERASE 28 U/L (14-36); BILIRUBIN,DIRECT 0.2 mg/dL (0.0-0.4); BILIRUBIN,TOTAL 0.3 mg/dL (0.2-1.3); BLOOD UREA NITROGEN 13 mg/dL (7-20); CALCIUM 9.4 mg/dL (8.4-10.2); CARBON DIOXIDE 29 mmol/L (22-30); CHLORIDE 102 mmol/L (98-107); GLUCOSE 114 mg/dL (75-110); POTASSIUM 3.7 mmol/L (3.6-5.0); TOTAL PROTEIN 7.5 g/dL (6.3-8.2)
--- NOTE | 2019-12-26 22:14 | RADIOLOGY REPORT (SQ) ---
EXAM DESCRIPTION: XR CHEST 1 VIEW COMPLETED DATE/TME: 12/26/2019 20:26 CLINICAL HISTORY: 59 years Female sob chest tightness COMPARISON: 06/10/2015. FINDINGS: The cardiomediastinal silhouette appears unremarkable. No consolidating infiltrates or pleural effusions. No pneumothorax. IMPRESSION: No pulmonary infiltrates are noted No evidence of acute process
--- NOTE | 2019-12-27 09:26 | EKG REPORT ---
SEVERITY:- BORDERLINE ECG - SINUS RHYTHM BORDERLINE T ABNORMALITIES, ANT-LAT LEADS : Confirmed by: Sisi Demarco 27-Dec-2019 09:25:37
== END 2019-12-26 22:46 | disposition home or self-care (01) ==
LOC: ER 20:07
DX: J40 Bronchitis, not specified as acute or chronic (principal); R06.02 Shortness of breath; R07.9 Chest pain, unspecified; Z88.3 Allergy status to other anti-infective agents; Z90.49 Acquired absence of other specified parts of digestive tract
CPT/HCPCS: 93005; 94640; 99284; 96372; 36415; 85025; 80053; 81001; 84484; 71045; 93010; J1100; J7620

== ENCOUNTER → 2020-04-03 | Outpatient (CLI) | payer BC ==
--- NOTE | 2020-04-03 13:14 | WOMENS IMAGING REPORT ---
EXAM DESCRIPTION: BILAT SCREENING MAMMO W/CAD IMAGES COMPLETED DATE/TIME: 04/03/2020 8:44 am REASON FOR STUDY: Z12.31 ENCOUNTER FOR SCREENING MAMMOGRAM FOR MALIGNANT NEOPLASM OF BREAST Z12.31 ENCNTR SCREEN MAMMOGRAM FOR MALIGNANT NEOPLASM OF SARI COMPARISON: Multiple since 2008 EXAM PARAMETERS: Standard craniocaudal and mediolateral oblique views of each breast recorded using digital acquisition. Read with the assistance of CAD. .[facility] - R2 Gear [employer] Set Up Operator Version 9.2 LIMITATIONS: None. FINDINGS: Findings present which are benign by mammographic criteria. No suspicious masses, calcifi cations or architectural distortion. Pertinent benign findings: Benign calcifications bilaterally. Benign subcentimeter well-circumscribe d low-density mammographic masses Benign mammographic findings may include one or more of the following: Smooth masses, popcorn/rim/co arse calcifications, asymmetries, post-procedure changes, and lesions with long-standing stability. IMPRESSION: BENIGN MAMMOGRAPHIC FINDINGS. BIRADS 2 BREAST DENSITY: c. The breasts are heterogeneously dense, which may obscure small masses. BIRAD: ASSESSMENT: 2 BENIGN FINDING(S) RECOMMENDATION: ROUTINE SCREENING Please continue yearly bilateral screening mammography/tomosynthesis in March 2021 Consider bilateral screening tomosynthesis given heterogeneously dense tissue bilaterally COMMENT: The patient has been notified of the results by letter per MQSA requirements. Additional no tification policies are in place for contacting patient with suspicious or incomplete findings. Quality ID #[id number]: The [employer] recommends an annual screening mammogram for women aged 40 years or over. This facility utilizes a reminder system to ensure that all patients receive reminder letters, and/or direct phone calls for appointments. This includes reminders for routine scr eening mammograms, diagnostic mammograms, or other Breast Imaging Interventions when appropriate. Th is patient will be placed in the appropriate reminder system. TECHNICAL DOCUMENTATION: FINDING NUMBER: (1) ASSESSMENT: (1) JOB ID: [id number] 2010 [employer]- All Rights Reserved Reading location - IP/workstation name: [email or web address]
== END ==
LOC: WI 08:20
PROVIDERS: ATTEND Nurse Practitioner Family
DX: Z12.31 Encounter for screening mammogram for malignant neoplasm of breast (principal)
CPT/HCPCS: 77067